=== PATIENT | male | born 1985 | race Caucasian/White ===

== ENCOUNTER 2018-11-26 22:40 | Emergency (ER) | payer MEDICAID ==
[~2018-11-26] VITALS: Ht 172.7 cm; Wt 73.8 kg
[~2018-11-26 22:40] MED LIST: AZIT250T PO; CEPH-443 PO; IBUP-1542 PO; NAPR275T83 PO; PRED20TA PO
[2018-11-26 22:44] VITALS: Ht 172.7 cm; Wt 73.8 kg
--- NOTE | 2018-11-27 00:29 | ERD ---
ER Documentation Chief Complaint Chief Complaint chest pain x 1 day HPI 33-year-old man complaining of sharp nonexertional nonradiating chest pain and anxiety all day long. He states he feels anxious and tremulous and has had similar episodes of anxiety associated with chest pain. He has the symptoms about 2-3 times per year. He denies other precipitating factors for his chest pain denies cough, no fevers or chills, no headache or blurry vision. Patient states he has a discomfort in his throat as well but denies difficulty swallowing or odynophagia ROS All systems reviewed and are negative except as per history of present illness. Medications Home Meds Active Scripts Lorazepam* (Ativan*) 0.5 Mg Tablet, 0.5 MG PO Q8H PRN for ANXIETY, #10 TAB Prov:AD SANTIAGO MD 11/27/18 Naproxen* (Naprosyn*) 500 Mg Tablet, 500 MG PO BID PRN for PAIN AND/OR INFLAMMATION, #30 TAB Prov:AD SANTIAGO MD 11/27/18 Discontinued Scripts Naproxen Sodium* (Naproxen*) 275 Mg Tablet, 275 MG PO BID for 7 Days, TAB Prov:DYLAN FARMER PA-C 10/08/16 Cephalexin* (Keflex*) 500 Mg Capsule, 500 MG PO QID for 5 Days, CAP Prov:DYLAN FARMER PA-C 10/08/16 Ibuprofen* (Motrin*) 600 Mg Tab, 600 MG PO Q6, #30 TAB Prov:HEAVENLY THAKUR PA-C 04/20/16 Azithromycin* (Zithromax*) 250 Mg Tablet, 250 MG PO .RENCK DIRECTED, #6 TAB TAKE 500 MG (2 TABS) THE FIRST DAY THEN 250 MG (1 TAB) DAYS 2-5 Prov:CHEIKH SANDOVAL MD 04/05/16 Prednisone (Prednisone) 20 Mg Tab, 40 MG PO q day for 4 Days, TAB Prov:CHEIKH SANDOVAL MD 04/05/16 Allergies Allergies: Coded Allergies: No Known Allergy (Unverified , 11/27/18) PMhx/Soc Anxiety History of Surgery: No Anesthesia Reaction: No Hx Neurological Disorder: No Hx Respiratory Disorders: Yes (asthma) Hx Cardiac Disorders: No Hx Psychiatric Problems: No Hx Miscellaneous Medical Probl: No Hx Alcohol Use: Yes (occassional) Hx Substance Use: No Hx Tobacco Use: No FmHx Family History: No diabetes Physical Exam Vitals Vital Signs Date Temp Pulse Resp B/P (MAP) Pulse Ox O2 O2 Flow FiO2 Time Delivery Rate 11/27/18 45 14 111/68 100 Room Air 02:02 (82) 11/27/18 45 14 119/80 98 Room Air 01:21 (93) 11/27/18 97.4 46 16 137/84 99 Room Air 00:54 (101) 11/26/18 97.4 60 18 144/82 97 22:44 (102) Physical Exam GENERAL: Well-developed, generally healthy appearing young man, well-nourished, appears anxious, afebrile, tremulous HEENT: Moist mucous membranes, pink conjunctiva, no cervical spine tenderness or step-off deformities, no goiter, no jaundice or icterus, extraocular movements intact without pain. No submandibular induration, and no pharyngeal erythema NEURO: Alert and oriented 3, cranial nerves II through XII intact bilaterally, pupils equal round reactive to light, no focal deficits or facial asymmetry, sensation intact distally Strength 5/5 in upper and lower extremities bilaterally CARDIAC: Regular rate and rhythm, no murmurs rubs or gallops LUNGS: Clear bilaterally no wheezing crackles or stridor ABDOMEN: Soft nontender, no guarding, no rigidity, no rebound, no psoas sign no obturator sign. Normoactive bowel sounds SKIN: Warm and dry to touch, no abrasions, contusions, or hematomas, no lacerations, no ecchymosis, no target lesions, and without ulcers EXTREMITIES: No clubbing cyanosis or edema, calves are bilaterally symmetrical, no Homans sign, no popliteal cord sign. Distal pulses equal and bilateral PSYCH: Anxious Results 24 hrs Laboratory Tests Test 11/27/18 00:44 Troponin I < 0.012 ng/ml Current Medications Medications Dose Sig/Felton Start Time Status Last (Trade) Ordered Route PRN Stop Time Admin Dose Reason Admin Ibuprofen 600 mg ONCE ONCE 11/27/18 DC 11/27/18 (Motrin) PO 01:00 00:50 11/27/18 01:01 Lorazepam 0.5 mg ONCE ONCE 11/27/18 DC 11/27/18 (Ativan) PO 01:00 01:00 11/27/18 01:01 Procedures/MDM patient was placed on cardiac monitor technician rhythm strip revealed a sinus bradycardia 50 bpm with upright P and T waves. Patient was afebrile EKG performed, read by me revealed a sinus bradycardia 53 bpm, normal axis, right ventricular conduction delay QRS duration 104 ms, no concerning ST elevations or depressions noted I administered ibuprofen 600 mg p.o. and lorazepam 0.5 mg p.o. x1 for his symptoms. Troponin was negative. Patient's symptoms improved and his vital signs remained normal. Differential diagnoses considered, included but not limited to acute coronary syndrome, pulmonary embolism, aortic dissection, abdominal aortic aneurysm, sepsis, stroke, meningitis, encephalitis, pneumonia, appendicitis, cholecystitis, bowel obstruction, pyelonephritis, nephrolithiasis, cystitis, as well as metabolic, hematologic, and electrolyte abnormalities. As well as abscess, cellulitis, fractures, and dislocations. Patient feels much better at this time, and vital signs are normal, symptoms have improved. I did give strict instructions to return to the ED if symptoms continue or worsen, patient will otherwise follow-up with primary care physician. Patient understood instructions and agreed to plan. Disclaimer: Inadvertent spelling and grammatical errors are likely due to EHR/dictation software use and do not reflect on the overall quality of patient care. Also, please note that the electronic time recorded on this note does not necessarily reflect the actual time of the patient encounter. Departure Diagnosis: Primary Impression: Chest pain Chest pain type: unspecified Qualified Codes: R07.9 - Chest pain, unspecified Additional Impressions: Bradycardia on ECG Acute anxiety Condition: AD Duron MD Nov 27, 2018 00:29
[2018-11-27] MEDS ORDERED: LORAZEPAM 0.5 MG TAB PO ONE (01:00)
[2018-11-27] MEDS ORDERED: IBUPROFEN 600 MG TAB PO ONE (01:00)
[2018-11-27] MEDS ORDERED: LORA-441 PO (01:59)
[2018-11-27] MEDS ORDERED: NAPR-985 PO (01:59)
[2018-11-27 02:02] VITALS: BP 111/68; PULSE 45; RESP 14
== END 2018-11-27 02:14 | disposition home or self-care (01) ==
LOC: E/R 22:40
DX: R07.9 Chest pain, unspecified (principal); R00.1 Bradycardia, unspecified; F41.9 Anxiety disorder, unspecified; J45.909 Unspecified asthma, uncomplicated
CPT/HCPCS: 84484; Z7502; Z7610; 93005; 99283